=== PATIENT | female | born 1970 | race Caucasian/White ===

== ENCOUNTER 2021-07-31 15:20 | Emergency (ER) | payer MEDICAID | END 2021-07-31 16:54 | disposition left against medical advice (07) | LOC: EMS 15:20 | DX: Z53.21 Procedure and treatment not carried out due to patient leaving prior to being seen by health care provider (principal) ==

== ENCOUNTER 2023-11-11 23:09 | Inpatient (IN) | payer MEDICAID ==
[~2023-11-11] VITALS: Ht 167.6 cm; Wt 105.9 kg
[2023-11-12 00:19] LABS: BASOPHILS % (AUTO) 0.8 % (0.0-2.0); EOSINOPHILS % (AUTO) 3.6 % (1.0-6.0); HEMOGLOBIN 15.2 g/dL (12.0-16.0); LYMPHOCYTES # (AUTO) 1.7 K/uL (1.0-4.8); LYMPHOCYTES % (AUTO) 24.7 % (22.0-44.0); MEAN CORPUSCULAR HEMOGLOBIN 29.1 pg (26.0-34.0); MEAN CORPUSCULAR HGB CONC 32.9 G/dL (31.0-37.0); MEAN CORPUSCULAR VOLUME 88 fL (80-100); MONOCYTES # (AUTO) 0.5 K/uL (0.1-1.0); MONOCYTES % (AUTO) 6.7 % (2.0-9.0); NEUTROPHILS # (AUTO) 4.4 K/uL (1.8-7.7); NEUTROPHILS % (AUTO) 64.2 % (40.0-70.0); PLATELET COUNT (AUTO) 245 K/uL (150-450); RED BLOOD CELL COUNT(AUTO) 5.22 MIL/uL (4.00-5.20); RED CELL DISTRIBUTION WIDTH 13.8 % (11.5-14.5); WHITE BLOOD COUNT (AUTO) 6.9 K/uL (4.5-11.0)
[2023-11-12] MEDS ORDERED: PROMETHAZINE HCL 25 MG TABLET PO PRN (00:30)
[2023-11-12] MEDS ORDERED: TUBERCULIN, PURIFIED PROTEIN DERIVATIVE 5 TU/0.1 ML SYRINGE ID ONE (00:30)
[2023-11-12] MEDS ORDERED: MAG HYDROX/ALUMINUM HYD/SIMETH ES 30 ML SUSPENSION UDCUP PO PRN (00:30)
[2023-11-12] MEDS ORDERED: MAGNESIUM HYDROXIDE SUSPENSION 30 ML UDCUP PO PRN (00:30)
[2023-11-12] MEDS ORDERED: GuaiFENesin/D-METHORPHAN [SUGAR-FREE] 200-20MG/10 ML SYRUP UDCUP PO PRN (00:30)
[2023-11-12] MEDS ORDERED: HydrOXYzine PAMOATE 50 MG CAPSULE PO PRN (00:30)
[2023-11-12 00:37] LABS: ANION GAP 20 mmol/L (8-16); CALCIUM, TOTAL 9.4 mg/dL (8.8-10.5); CARBON DIOXIDE 23 mmol/L (22-29); CHLORIDE 101 mmol/L (98-107); CREATININE 0.71 mg/dL (0.60-1.30); GLOMERULAR FILTR. RATE CALC > 60 mL/min (>60); GLUCOSE,RANDOM 94 mg/dL (70-110); POTASSIUM 3.5 mmol/L (3.5-5.1); SODIUM SERUM 144 mmol/L (136-145); UREA NITROGEN, BLOOD 9 mg/dL (7-18)
[2023-11-12 00:43] LABS: ALANINE AMINOTRANSFERASE 101 U/L (12-78); ALBUMIN 3.9 g/dL (3.4-5.0); ALKALINE PHOSPHATASE 135 U/L (46-116); ASPARTATE AMINOTRANSFERASE 64 U/L (15-37); BILIRUBIN,TOTAL 0.7 mg/dL (0.1-1.0); TOTAL PROTEIN, SERUM 8.1 g/dL (6.4-8.2)
[2023-11-12 00:47] LABS: ACETAMINOPHEN < 2 mcg/mL (10-30)
[2023-11-12 00:56] LABS: ALCOHOL, BLOOD (SERUM) 177 mg/dL (0-10)
[2023-11-12 02:39] LABS: COVID AG,FIA SOURCE NASAL SWAB
[2023-11-12 02:43] LABS: INR 0.9 (0.9-1.1); PROTHROMBIN TIME 9.8 SEC (9.4-11.6)
[2023-11-12 03:04] LABS: SARS-COV2 (COVID) ANTIGEN,FIA Negative (Negative)
[2023-11-12 04:44] LABS: ANION GAP 12 mmol/L (8-16); CARBON DIOXIDE 28 mmol/L (22-29); CHLORIDE 104 mmol/L (98-107); CREATININE 0.69 mg/dL (0.60-1.30); GLOMERULAR FILTR. RATE CALC > 60 mL/min (>60); GLUCOSE,RANDOM 92 mg/dL (70-110); POTASSIUM 4.3 mmol/L (3.5-5.1); SODIUM SERUM 144 mmol/L (136-145); UREA NITROGEN, BLOOD 7 mg/dL (7-18)
[2023-11-12 04:50] LABS: ALANINE AMINOTRANSFERASE 91 U/L (12-78); ALBUMIN 3.4 g/dL (3.4-5.0); ALKALINE PHOSPHATASE 119 U/L (46-116); ASPARTATE AMINOTRANSFERASE 59 U/L (15-37); BILIRUBIN,TOTAL 0.6 mg/dL (0.1-1.0); TOTAL PROTEIN, SERUM 7.1 g/dL (6.4-8.2)
[2023-11-12 05:01] LABS: ACETAMINOPHEN < 2 mcg/mL (10-30)
[2023-11-12] MEDS: THIAMINE 100 MG TABLET PO SCH (09:00)
[2023-11-12] MEDS: MULTIVITAMINS WITH MINERALS, THERAPEUTIC TABLET PO SCH (09:00)
[2023-11-12] MEDS: FOLIC ACID 1 MG TABLET PO SCH (09:00)
[2023-11-12] MEDS: NALTREXONE HCL 50 MG TABLET PO SCH (10:15)
[2023-11-12 10:17] VITALS: O2SAT 96
[2023-11-12 12:48] VITALS: BP 110/58; PULSE 83; RESP 18; TEMP 97.5; O2SAT 95
[2023-11-12 20:09] VITALS: BP 132/74; PULSE 77; RESP 18; TEMP 96.6; O2SAT 97
[2023-11-12] MEDS: MIRTAZAPINE 15 MG TABLET PO SCH (20:31)
[2023-11-12] MEDS: MELATONIN 5 MG TABLET PO SCH (20:31)
[2023-11-13 08:26] VITALS: BP 120/83; PULSE 79; RESP 18; TEMP 97.9; O2SAT 98
[2023-11-13] MEDS: NICOTINE 21 MG/24 HOUR PATCH TD SCH (08:26)
[2023-11-13 08:29] VITALS: RESP 18
[2023-11-13] MEDS: ACETAMINOPHEN 325 MG TABLET PO PRN (08:31)
[2023-11-13 10:00] LABS: HEMOGLOBIN A1C 5.6 % (3.8-5.6)
[2023-11-13 10:44] LABS: CHOL/HDL RATIO 2.3 (3.9-5.7); FREE T4 (FREE THYROXINE) 0.94 ng/dL (0.76-1.46); THYROID STIMULATING HORMONE 0.95 uIU/mL (0.36-3.74)
[2023-11-13 11:57] LABS: PREGNANCY RESULT, SERUM NEGATIVE (NEGATIVE)
[2023-11-13 15:36] LABS: RAPID PLASMA REAGIN NONREACTIVE (NONREACTIVE)
[2023-11-13 16:22] VITALS: RESP 18
[2023-11-13] MEDS ORDERED: MELA5TAB40 PO (17:23)
[2023-11-13] MEDS ORDERED: MIRT-89 PO (17:23)
[2023-11-13] MEDS ORDERED: NALT50TA33 PO (17:23)
[2023-11-13 20:43] VITALS: BP 107/60; PULSE 68; RESP 18; TEMP 98
[2023-11-14 08:14] VITALS: BP 132/81; PULSE 68; RESP 17; TEMP 98.6; O2SAT 96
[2023-11-14 08:54] VITALS: RESP 17
[2023-11-14 09:19] LABS: APPEARANCE,URINE CLEAR (CLEAR); BILIRUBIN,URINE NEGATIVE (NEGATIVE); COLOR,URINE YELLOW (YELLOW); GLUCOSE, URINE (UA) NEGATIVE (NEGATIVE); KETONES,URINE NEGATIVE (NEGATIVE); LEUKOCYTE ESTERASE ,URINE NEGATIVE (NEGATIVE); NITRATE,URINE NEGATIVE (NEGATIVE); OCCULT BLOOD,URINE NEGATIVE (NEGATIVE); PH,URINE 7.5 (5.0-8.0); PH,URINE DRUG SCREEN 7.5 (5.0-8.0); PROTEIN,URINE TRACE mg/dL (NEGATIVE); SPECIFIC GRAVITIY, URINE 1.024 (1.003-1.030); UROBILINOGEN,URINE <=1.0 mg/dL (<=1.0)
[2023-11-14 09:30] LABS: ALCOHOL, URINE DRUG SCREEN NEGATIVE (NEGATIVE); AMPHET/METH SCREEN,URINE POSITIVE (NEGATIVE); BARBITURATE SCREEN, URINE NEGATIVE (NEGATIVE); BENZODIAZEPINES SCREEN,URINE NEGATIVE (NEGATIVE); CANNABINOID SCREEN,URINE NEGATIVE (NEGATIVE); COCAINE SCREEN,URINE NEGATIVE (NEGATIVE); METHADONE SCREEN, URINE NEGATIVE (NEGATIVE); OPIATE SCREEN,URINE NEGATIVE (NEGATIVE); PHENCYCLIDINE SCREEN,URINE NEGATIVE (NEGATIVE)
[2023-11-14 09:47] LABS: BACTERIA,URINE None Seen /HPF (None Seen); RBC,URINE None Seen /HPF (0-2); WBC,URINE None Seen /HPF (0-5)
[2023-11-14 09:54] VITALS: RESP 17
== END 2023-11-14 16:33 | disposition home or self-care (01) | DRG 751 ==
LOC: EMS 23:09 → B3A 11-12 09:44
PROVIDERS: ADMIT Psychiatry & Neurology Psychiatry; ATTEND Psychiatry & Neurology Psychiatry
PROC: GZHZZZZ Group Psychotherapy (ICD-10-PCS; principal; 2023-11-12)
PROC: GZ51ZZZ Individual Psychotherapy, Behavioral (ICD-10-PCS; 2023-11-12)
PROC: GZ58ZZZ Individual Psychotherapy, Cognitive-Behavioral (ICD-10-PCS; 2023-11-12)
PROC: GZ56ZZZ Individual Psychotherapy, Supportive (ICD-10-PCS; 2023-11-13)
DX: F32.3 Major depressive disorder, single episode, severe with psychotic features (principal); R45.851 Suicidal ideations; E03.9 Hypothyroidism, unspecified; Z20.822 Contact with and (suspected) exposure to COVID-19; F10.10 Alcohol abuse, uncomplicated; T50.992A Poisoning by other drugs, medicaments and biological substances, intentional self-harm, initial encounter; Y92.89 Other specified places as the place of occurrence of the external cause; Z87.891 Personal history of nicotine dependence; Z79.899 Other long term (current) drug therapy
CPT/HCPCS: 80048; 80053; 80061; 80076; 80307; 81001; 83036; 84439; 84443; 84703; 85025; 85610; 86592; 93005; 99285; G0480; G0481